=== PATIENT | female | born 1940 | race Caucasian/White ===

== ENCOUNTER → 2018-05-26 | Outpatient (CLI) | payer MEDICARE ==
[~2018-05-26] MED LIST: CALC-534 PO; MULT-658 PO
[2018-05-26 12:42] LABS: MICROSCOPIC NOT IND
[2018-05-26 12:43] LABS: CULTURE INDICATED? NO
[2018-05-26 12:47] LABS: BASOPHILS # (AUTO) 0.04 x10^3/uL (0-0.1); BASOPHILS % (AUTO) 1 % (0-1); EOSINOPHILS # (AUTO) 0.07 x10^3/uL (0-0.4); EOSINOPHILS % (AUTO) 1 % (1-7); LYMPHOCYTES # (AUTO) 2.36 x10^3/uL (1-3.4); LYMPHOCYTES % (AUTO) 35 % (22-44); MD NO; MEAN CORPUSCULAR HEMOGLOBIN 31.9 pg (27.0-34.8); MEAN CORPUSCULAR HGB CONC 33.9 g/dL (32.4-35.8); MEAN CORPUSCULAR VOLUME 93.9 fL (80-100); MEAN PLATELET VOLUME 7.6 fL (7.4-10.4); MONOCYTES # (AUTO) 0.54 x10^3/uL (0.2-0.8); MONOCYTES % (AUTO) 8 % (2-9); NEUTROPHILS # (AUTO) 3.72 x10^3/uL (1.8-6.8); NEUTROPHILS % (AUTO) 55 % (42-75); PLATELET COUNT 264 x10^3/uL (130-400)
[2018-05-26 12:58] LABS: CHLORIDE 113 mmol/L (98-107)
[2018-05-26 13:08] LABS: ALANINE AMINOTRANSFERASE 26 U/L (12-78); ALBUMIN 3.9 g/dL (3.4-5.0); ALKALINE PHOSPHATASE 88 U/L (45-117); ANION GAP 7 mmol/L (5-15); BILIRUBIN,TOTAL 0.4 mg/dL (0.2-1.0); CALCIUM 9.3 mg/dL (8.5-10.1); CREATININE 0.87 mg/dL (0.55-1.02); TOTAL PROTEIN 8.3 g/dL (6.4-8.2)
== END | disposition home or self-care (01) ==
LOC: STAR 11:21
PROVIDERS: ATTEND Orthopaedic Surgery
DX: Z01.818 Encounter for other preprocedural examination (principal); M16.12 Unilateral primary osteoarthritis, left hip
CPT/HCPCS: 36415; 80053; 81003; 85025; 87081; 93005

== ENCOUNTER 2018-06-05 06:51 | Inpatient (IN) | payer MEDICARE ==
[~2018-06-05] VITALS: Ht 149.9 cm; Wt 56.8 kg
[2018-06-05] MEDS ORDERED: LACTATED RINGERS 1,000 ML IV SCH (07:12)
[2018-06-05] MEDS ORDERED: FENTANYL PF 100 MCG/2ML IV PRN (08:00)
[2018-06-05] MEDS ORDERED: METOPROLOL 1 MG/ML, 5ML IV PRN (08:00)
[2018-06-05] MEDS ORDERED: OXYcodone 5 MG/5 ML ORAL.SOL UDC PO PRN (08:00)
[2018-06-05] MEDS ORDERED: EPHEDRINE 50 MG/ML, 1ML IVPush PRN (08:00)
[2018-06-05] MEDS ORDERED: ONDANSETRON 2MG/ML, 2ML IV PRN ×2 (08:00→09:30)
[2018-06-05] MEDS ORDERED: hydrALAzine 20 MG/ML, 1ML IV PRN (08:00)
[2018-06-05] MEDS ORDERED: HYDROmorphone 1 MG/ML, 1ML IV PRN ×2 (08:00→09:30)
[2018-06-05] MEDS ORDERED: PROMETHAZINE 25 MG/ML, 1ML IV PRN (08:00)
[2018-06-05] MEDS ORDERED: LABETALOL 5MG/ML, 20ML IV PRN (08:00)
[2018-06-05] MEDS ORDERED: ALBUTEROL SULFATE 2.5 MG/3 ML NPPB PRN (08:00)
[2018-06-05] MEDS ORDERED: FENTANYL PF 100 MCG/2ML ONE (08:41)
[2018-06-05] MEDS ORDERED: PROPOFOL 10 MG/ML, 20ML ONE (08:48)
[2018-06-05] MEDS ORDERED: ROCURONIUM 10MG/ML,5ML ONE (08:48)
[2018-06-05] MEDS ORDERED: BUPIVACAINE/PF 0.5% ONE (08:48)
[2018-06-05] MEDS ORDERED: CEFAZOLIN 1,000 MG ONE (08:48)
[2018-06-05] MEDS ORDERED: GABAPENTIN 300 MG CAPSULE ONE ×2 (08:59→09:00)
[2018-06-05] MEDS ORDERED: KETOROLAC 60 MG/2 ML ONE (08:59)
[2018-06-05] MEDS ORDERED: ONDANSETRON ODT 8 MG ONE ×2 (08:59→09:00)
[2018-06-05] MEDS ORDERED: ACETAMINOPHEN 500 MG TABLET ONE ×2 (08:59→09:00)
[2018-06-05] MEDS ORDERED: OXYcodone IR 5MG TABLET ONE ×2 (08:59→09:00)
[2018-06-05] MEDS ORDERED: TRANEXAMIC ACID 100 MG/ML, 10ML ONE (08:59)
[2018-06-05] MEDS ORDERED: SCOPOLAMINE PATCH, 1.5MG PATCH.TD72 TD ONE ×2 (08:59)
[2018-06-05] MEDS ORDERED: EPINEPHRINE 1 MG/ML, 1ML ONE (09:00)
[2018-06-05] MEDS ORDERED: ROPIvacaine/PF 0.2%, 20 ML ONE (09:00)
[2018-06-05] MEDS ORDERED: SODIUM CHLORIDE 0.9% 100 ML ONE (09:00)
[2018-06-05] MEDS: D5%-0.45% NACL 1,000 ML IV SCH ×3 (09:10→21:54)
[2018-06-05] MEDS ORDERED: GLYCOPYRROLATE 0.2MG/1ML, 5ML ONE (09:27)
[2018-06-05] MEDS ORDERED: NEOSTIGMINE 1 MG/ML, 10ML ONE (09:27)
[2018-06-05] MEDS ORDERED: DIPHENHYDRAMINE 50 MG CAPSULE PO PRN (09:30)
[2018-06-05] MEDS ORDERED: ALUMINUM/MAG/SIMETHICONE 30 ML UDC PO PRN (09:30)
[2018-06-05] MEDS ORDERED: PROMETHAZINE 25 MG/ML, 1ML IM PRN (09:30)
[2018-06-05] MEDS ORDERED: PROMETHAZINE 12.5 MG SUPP PR PRN (09:30)
[2018-06-05] MEDS ORDERED: ZOLPIDEM 5MG TABLET PO PRN (09:30)
[2018-06-05] MEDS ORDERED: BISACODYL 10 MG SUPP PR PRN (09:30)
[2018-06-05] MEDS ORDERED: MAGNESIUM HYDROXIDE 8%, 30ML UDC PO PRN (09:30)
[2018-06-05] MEDS ORDERED: HYDROcodone/APAP 5/325 TABLET PO PRN (09:30)
[2018-06-05] MEDS ORDERED: SENNA/DOCUSATE TABLET PO PRN (09:30)
[2018-06-05] MEDS ORDERED: DIAZEPAM 5 MG TABLET PO PRN (09:30)
[2018-06-05] MEDS ORDERED: ONDANSETRON 4 MG TABLET PO PRN (09:30)
[2018-06-05] MEDS ORDERED: ONDANSETRON 2MG/ML, 2ML ONE (10:43)
[2018-06-05] MEDS ORDERED: DEXAMETHASONE 4 MG/ML, 1ML ONE ×2 (10:43)
[2018-06-05] MEDS ORDERED: TRANEXAMIC ACID 1,000 MG in SODIUM CHLORIDE 0.9% 100 ML IVPB ONE (11:30)
[2018-06-05] MEDS: TAMSULOSIN 0.4 MG CAP.ER.24H PO SCH (11:30)
[2018-06-05] MEDS: ACETAMINOPHEN 500 MG TABLET PO SCH ×3 (15:30→23:58)
[2018-06-05] MEDS ORDERED: CEFAZOLIN PMX 2GM/50ML 50 ML IVPB SCH (18:30)
[2018-06-05] MEDS: CEFAZOLIN 2,000 MG in SODIUM CHLORIDE 0.9% 50 ML IVPB SCH (18:32)
[2018-06-05] MEDS: ASPIRIN 81 MG TABLET EC PO SCH (18:32)
[2018-06-05 20:20] VITALS: BP 99/59
[2018-06-05] MEDS: DOCUSATE 100 MG CAPSULE PO SCH (20:46)
[2018-06-06] VITALS: BP 100/56
[2018-06-06] MEDS: CEFAZOLIN 2,000 MG in SODIUM CHLORIDE 0.9% 50 ML IVPB SCH (02:22)
[2018-06-06 04:21] VITALS: BP 92/52
[2018-06-06] MEDS: ASPIRIN 81 MG TABLET EC PO SCH (05:51)
[2018-06-06] MEDS: ACETAMINOPHEN 500 MG TABLET PO SCH (05:51)
[2018-06-06] MEDS ORDERED: DEXAMETHASONE 4 MG/ML, 1ML IVPush SCH (06:00)
[2018-06-06 06:15] VITALS: BP 93/57
[2018-06-06] MEDS ORDERED: MULTIVITAMINS/MINERALS TABLET PO SCH (09:00)
[2018-06-06] MEDS: TAMSULOSIN 0.4 MG CAP.ER.24H PO SCH (09:00)
[2018-06-06] MEDS: DOCUSATE 100 MG CAPSULE PO SCH (09:08)
[2018-06-06] MEDS: D5%-0.45% NACL 1,000 ML IV SCH (09:08)
[2018-06-06] MEDS ORDERED: KETOROLAC 30 MG/1 ML IV SCH (09:30)
[2018-06-06] MEDS ORDERED: HYDR-3240 PO (10:54)
== END 2018-06-06 11:30 | disposition home or self-care (01) | DRG 470 ==
LOC: ORIP 06:51 → 4NOR 12:50 → DCLOUNGE 06-06 11:02
PROVIDERS: ADMIT Orthopaedic Surgery; ATTEND Orthopaedic Surgery
PROC: 0SRB0JZ Replacement of Left Hip Joint with Synthetic Substitute, Open Approach (ICD-10-PCS; principal; 2018-06-05 09:45)
DX: M16.12 Unilateral primary osteoarthritis, left hip (principal); Z60.2 Problems related to living alone
CPT/HCPCS: 36415; 72170; 85014; 85018; 86850; 86900; C1713; G0378; J0171; J0690; J1100; J1885; J2405; J2704; J2710; J2795; J3010; J3490; Q0162; C1776; J7120